=== PATIENT | male | born 1955 | race Caucasian/White ===

== ENCOUNTER 2016-06-17 11:02 | Day surgery (SDC) | payer OTHER ==
[~2016-06-17 11:02] MED LIST: IV START KIT ONE; LACTATED RINGERS 1,000 ML ONE
[2016-06-17] MEDS ORDERED: MIDAZOLAM HCL 5 MG/5 ML VIAL IV PRN (12:07)
[2016-06-17] MEDS ORDERED: FENTANYL 250 MCG/5 ML AMP IV PRN (12:07)
[2016-06-17] MEDS ORDERED: LACTATED RINGERS 1,000 ML IV SCH (12:15)
[2016-06-17] MEDS ORDERED: FENTANYL 250 MCG/5 ML AMP ONE (12:19)
[2016-06-17] MEDS ORDERED: MIDAZOLAM HCL 5 MG/5 ML VIAL ONE (12:19)
--- NOTE | 2016-06-20 10:10 | SURGPATH ---
[facility] [address] [place] [id number] Patient Name: KATHI ESTRADA MR#: [id number] : 1955 Gender: M Specimen #: [id number] Collected: 06/17/2016 Received: 06/19/2016 Reported: 06/20/2016 Submitting Phys: YURIY MEJIA Copy To Phys: [facility] Clinical History / Pre-Operative Diagnosis: Colon screening Specimen Source / Surgical Procedure Performed: Cecal polyp Interpretation: CECUM, POLYP, BIOPSY: - TUBULAR ADENOMA Electronically Signed Out Sunshine Hammer M.D. Gross Description: The specimen is received in formalin labeled with the patient's name and "cecal polyp". The specimen consists of three 0.2 cm fragments of mustafa soft tissue. Submitted in toto in one cassette. ONOFRE Marvin Microscopic Description: Sections show fragments of adenomatous colonic mucosa without high grade dysplasia. 1: 95607 D12.0
== END 2016-06-17 13:42 | disposition home or self-care (01) ==
LOC: SDC 11:02
PROVIDERS: ATTEND Family Medicine
PROC: 0DBH8ZX Excision of Cecum, Via Natural or Artificial Opening Endoscopic, Diagnostic (ICD-10-PCS; principal; 2016-06-17)
DX: Z12.11 Encounter for screening for malignant neoplasm of colon (principal); K57.30 Diverticulosis of large intestine without perforation or abscess without bleeding; D12.0 Benign neoplasm of cecum